=== PATIENT | female | born 1970 | race Caucasian/White ===

== ENCOUNTER 2017-03-06 01:34 | Emergency (ER) | payer MEDICAID ==
[~2017-03-06] VITALS: Ht 154.9 cm; Wt 74.2 kg
[~2017-03-06 01:34] MED LIST: AMOX500C2 PO; CIPR7.5D4 RIGHT EAR; IBUP-1542 PO
[2017-03-06 01:37] VITALS: Ht 154.9 cm; Wt 74.2 kg
[2017-03-06] MEDS ORDERED: ONDANSETRON 4 MG INJ IV STA ×2 (02:07→04:12)
[2017-03-06] MEDS ORDERED: SOD CHLORIDE 0.9% 1,000 ML IV STA (02:07)
[2017-03-06] MEDS ORDERED: morphine 4 MG/ML VIAL IV STA (02:07)
[2017-03-06 02:32] LABS: BASOPHIL # 0.1 10^3/ul (0.0-0.1); BASOPHILS % 0.4 % (0.0-2.0); EOSINOPHILS # 0.2 10^3/ul (0.0-0.5); EOSINOPHILS % 0.7 % (0.0-7.0); HEMATOCRIT 42.8 % (37.0-47.0); HEMOGLOBIN 15.2 g/dl (12.0-16.0); LYMPHOCYTES # 1.9 10^3/ul (0.8-2.9); LYMPHOCYTES % 9.1 % (15.0-51.0); MEAN CORPUSCULAR HGB CONC 35.5 g/dl (32.0-37.0); MEAN CORPUSCULAR VOLUME 87.2 fl (82.0-101.0); MEAN PLATELET VOLUME 11.7 fl (7.4-10.4); MONOCYTE # 1.4 10^3/ul (0.3-0.9); NEUTROPHIL # 16.7 10^3/ul (1.6-7.5); NEUTROPHILS % 82.4 % (39.0-77.0); PLATELET COUNT 221 10^3/UL (140-415); RED BLOOD COUNT 4.91 10^6/ul (4.20-5.40); WHITE BLOOD COUNT 20.3 10^3/ul (4.8-10.8)
[2017-03-06 02:44] LABS: ALBUMIN 4.6 g/dl (3.3-4.9); ALBUMIN/GLOBULIN RATIO 1.39; CREATININE 0.69 mg/dl (0.44-1.00); POTASSIUM 3.8 mmol/L (3.5-5.1); TOTAL PROTEIN 7.9 g/dl (6.1-8.1)
--- NOTE | 2017-03-06 03:37 | ERD ---
ER Documentation Chief Complaint Chief Complaint bib son for nausea vomiting and diarrhea x 7 pm, ate bad food at 1300 HPI This is a 46-year-old female comes in with complaints of nausea vomiting diarrhea since 7 PM. Patient says she ate bad food. No fevers no chills. No other current complaints. ROS All systems reviewed and are negative except as per history of present illness. Medications Home Meds Active Scripts Ibuprofen* (Ibuprofen*) 600 Mg Tablet, 600 MG PO Q6 for PAIN, #30 TAB Prov:LATASHA BENEDICT PA-C 01/05/15 Ciprofloxacin Hcl/Dexameth (Ciprodex Otic Suspension) 7.5 Ml Drops.susp, 4 DROP RIGHT EAR BID for 7 Days, DROP Prov:LATASHA BENEDICT PA-C 01/05/15 Amoxicillin* (Amoxicillin*) 500 Mg Cap, 500 MG PO BID for 10 Days, CAP Prov:LATASHA BENEDICT PA-C 01/05/15 Allergies Allergies: Coded Allergies: No Known Allergy (Unverified , 05/01/12) PMhx/Soc Medical and Surgical Hx: pt denies Medical Hx History of Surgery: No (Appendectomy, , tubaligation) Anesthesia Reaction: No Hx Neurological Disorder: No Hx Respiratory Disorders: No Hx Cardiac Disorders: No Hx Psychiatric Problems: No Hx Miscellaneous Medical Probl: No Hx Alcohol Use: No Hx Substance Use: No Hx Tobacco Use: No Smoking Status: Never smoker Physical Exam Vitals Vital Signs Date Time Temp Pulse Resp B/P Pulse Ox O2 Delivery O2 Flow Rate FiO2 03/06/17 01:52 98.6 106 18 114/53 100 Room Air 03/06/17 01:37 98.6 82 18 137/65 100 Physical Exam Const: [] Head: Atraumatic Eyes: Normal Conjunctiva ENT: Normal External Ears, Nose and Mouth. Neck: Full range of motion..~ No meningismus. Resp: Clear to auscultation bilaterally Cardio: Regular rate and rhythm, no murmurs Abd: Soft, non tender, non distended. Normal bowel sounds Skin: No petechiae or rashes Back: No midline or flank tenderness Ext: No cyanosis, or edema Neur: Awake and alert Psych: Normal Mood and Affect Result Diagram: 03/06/1721403/06/17214 Results 24 hrs Laboratory Tests Test 03/06/17 02:15 White Blood Count 20.310^3/ul Red Blood Count 4.9110^6/ul Hemoglobin 15.2g/dl Hematocrit 42.8% Mean Corpuscular Volume 87.2fl Mean Corpuscular Hemoglobin 31.0pg Mean Corpuscular Hemoglobin Concent 35.5g/dl Red Cell Distribution Width 12.0% Platelet Count 88213^3/UL Mean Platelet Volume 11.7fl Neutrophils % 82.4% Lymphocytes % 9.1% Monocytes % 7.0% Eosinophils % 0.7% Basophils % 0.4% Nucleated Red Blood Cells % 0.0/100WBC Neutrophils # 16.710^3/ul Lymphocytes # 1.910^3/ul Monocytes # 1.410^3/ul Eosinophils # 0.210^3/ul Basophils # 0.110^3/ul Nucleated Red Blood Cells # 0.010^3/ul Sodium Level 140mmol/L Potassium Level 3.8mmol/L Chloride Level 101mmol/L Carbon Dioxide Level 23mmol/L Anion Gap 20 Blood Urea Nitrogen 11mg/dl Creatinine 0.69mg/dl Glucose Level 114mg/dl Calcium Level 10.0mg/dl Total Bilirubin 1.0mg/dl Direct Bilirubin 0.00mg/dl Indirect Bilirubin 1.0mg/dl Aspartate Amino Transf (AST/SGOT) 25IU/L Alanine Aminotransferase (ALT/SGPT) 36IU/L Alkaline Phosphatase 75IU/L Total Protein 7.9g/dl Albumin 4.6g/dl Globulin 3.30g/dl Albumin/Globulin Ratio 1.39 Lipase 166U/L Current Medications Medications (Trade) Dose Ordered Sig/Silvio Route PRN Reason Start Time Stop Time Status Last Admin Dose Admin Sodium Chloride (NS) 1,000 ml @ 1,000 mls/hr Q1H STAT IV 03/06/17 02:07 03/06/17 03:06 DC 03/06/17 02:14 Morphine Sulfate (morphine) 4 mg ONCE STAT IV 03/06/17 02:07 03/06/17 02:08 DC 03/06/17 02:14 Ondansetron HCl (Zofran Inj) 4 mg ONCE STAT IV 03/06/17 02:07 03/06/17 02:08 DC 03/06/17 02:14 Procedures/MDM Medical decision-makin-year-old female who has what looks to be acute bacterial gastroenteritis. At this point is clinically stable. Patient is feeling much better. Patient does have a mild white count, was likely stress reaction. At this point is clinically stable she will be discharged home. Departure Diagnosis: Primary Impression: Nausea and vomiting Condition: Stable MERCED STANTON Mar 06, 2017 03:37
[2017-03-06] MEDS ORDERED: DICY10CA60 PO (03:39)
[2017-03-06] MEDS ORDERED: ONDA4TAB14 PO (03:39)
[2017-03-06 04:15] VITALS: BP 113/59; PULSE 113; RESP 16
[2017-03-06] MEDS ORDERED: IBUPROFEN 800 MG TAB PO ONE (04:30)
[2017-03-06 04:50] VITALS: TEMP 101.1
== END 2017-03-06 04:54 | disposition home or self-care (01) ==
LOC: E/R 01:34
DX: R11.2 Nausea with vomiting, unspecified (principal)
CPT/HCPCS: 36415; 80053; 83690; 85025; 96374; 96375; 96376; J2270; J2405; J7030; Z7502; Z7610

== ENCOUNTER 2018-02-19 23:27 | Emergency (ER) | END 2018-02-20 01:34 | disposition home or self-care (01) ==

== ENCOUNTER 2018-03-21 20:10 | Emergency (ER) | payer BC, MEDICAID ==
[~2018-03-21] VITALS: Ht 154.9 cm; Wt 64.6 kg
[~2018-03-21 20:10] MED LIST changes: +CIPR7.5D RIGHT EAR; -CIPR7.5D4 RIGHT EAR; +DICY10CA40 PO; +LORA1TAB PO; +ONDA4TAB14 PO; +ONDA4TAB8 PO; +PRED20TA PO
[2018-03-21 20:25] VITALS: Ht 154.9 cm; Wt 64.6 kg
[2018-03-21] MEDS ORDERED: LORAZEPAM 1 MG TAB PO ONE (23:30)
--- NOTE | 2018-03-22 01:07 | ERD ---
ER Documentation Chief Complaint Chief Complaint dizzy,shaking oftentimes,palpitations,slight LYLES x a month HPI This is a 48-year-old female who presents to the emergency room for evaluation of dizziness which she describes as lightheadedness, shaking, and anxiety. The patient states that she has had her symptoms for 1 month. She states that she saw Dr. kingsley [facility] who gave her some medications but it has not helped. The patient denies any chest pressure nausea or vomiting or diaphoresis at this time but does states that she gets intermittent palpitations ROS All systems reviewed and are negative except as per history of present illness. Medications Home Meds Active Scripts Prednisone* (Prednisone*) 20 Mg Tab, 40 MG PO DAILY for 4 Days, TAB Prov:JOBY BARNES MD 02/20/18 Ondansetron Hcl* (Zofran*) 4 Mg Tablet, 4 MG PO Q8H PRN for NAUSEA AND/OR VOMITING, #12 TAB Prov:JOBY BARNES MD 02/20/18 Lorazepam* (Lorazepam*) 1 Mg Tablet, 1 MG PO Q8H PRN for dizziness, #20 TAB Prov:JOBY BARNES MD 02/20/18 Ondansetron (Ondansetron Odt) 4 Mg Tab.rapdis, 4 MG PO Q6H PRN for NAUSEA AND/OR VOMITING, #10 TAB Prov:MERCED STANTON 03/06/17 Dicyclomine HCl (Dicyclomine HCl) 10 Mg Capsule, 10 MG PO QID, #14 CAP Prov:MERCED TSANTON 03/06/17 Ibuprofen* (Ibuprofen*) 600 Mg Tablet, 600 MG PO Q6 for PAIN, #30 TAB Prov:LATASHA BENEDICT PA-C 01/05/15 Ciprofloxacin Hcl/Dexameth (Ciprodex Otic Suspension) 7.5 Ml Drops.susp, 4 DROP RIGHT EAR BID for 7 Days, DROP Prov:LATASHA BENEDICT PA-C 01/05/15 Amoxicillin* (Amoxicillin*) 500 Mg Cap, 500 MG PO BID for 10 Days, CAP Prov:LATASHA BENEDICT PA-C 01/05/15 Allergies Allergies: Coded Allergies: No Known Allergy (Unverified , 05/01/12) PMhx/Soc History of Surgery: No (Appendectomy, , tubaligation) Anesthesia Reaction: No Hx Neurological Disorder: No Hx Respiratory Disorders: No Hx Cardiac Disorders: No Hx Psychiatric Problems: No Hx Miscellaneous Medical Probl: Yes (VERTIGO) Hx Alcohol Use: Yes Hx Substance Use: No Hx Tobacco Use: No Smoking Status: Never smoker Physical Exam Vitals Vital Signs Date Temp Pulse Resp B/P (MAP) Pulse Ox O2 O2 Flow FiO2 Time Delivery Rate 03/21/18 97.7 85 18 134/58 98 Room Air 23:18 (83) 03/21/18 97.7 80 18 155/74 98 20:25 (101) Physical Exam INITIAL VITAL SIGNS: Reviewed by me GENERAL: The patient is well developed and appropriate for usual state of health in no apparent distress HEENT: Pupils equal, round, and reactive to light. EOMI. There is no scleral icterus. NECK: C-spine is soft and supple, there is no meningismus. There is no cervical lymphadenopathy. LUNGS: Clear to auscultation bilaterally. There are no rales, wheezes or rhonchi. HEART: Regular rate and rhythm, no murmurs, clicks, rubs or gallops. ABDOMEN: Soft, non-tender, non-distended. There are bowel sounds in all four quadrants. No rebound or guarding. EXTREMITIES: There is no peripheral cyanosis or edema. No focal swelling or erythema. NEUROLOGICAL: The patient moves all four extremities with 5/5 strength. Cranial nerves II - XII are intact. Normal gait. Alert and oriented SKIN: There is no apparent rash or petechiae. HEME/LYMPHATIC: There is no evidence of excessive bruising or lymphedema. PSYCHIATRIC: The patient does appears to be anxious Result Diagram: 03/21/18235003/21/182349 Results 24 hrs Laboratory Tests Test 03/21/18 23:50 03/21/18 23:51 Sodium Level 139 mmol/L Potassium Level 3.8 mmol/L Chloride Level 101 mmol/L Carbon Dioxide Level 26 mmol/L Anion Gap 12 Blood Urea Nitrogen 11 mg/dl Creatinine 0.53 mg/dl Est Glomerular Filtrat Rate mL/min > 60 mL/min Glucose Level 105 mg/dl Calcium Level 9.9 mg/dl Troponin I < 0.012 ng/ml White Blood Count 11.0 10^3/ul Red Blood Count 4.52 10^6/ul Hemoglobin 14.0 g/dl Hematocrit 40.7 % Mean Corpuscular Volume 90.0 fl Mean Corpuscular Hemoglobin 31.0 pg Mean Corpuscular Hemoglobin Concent 34.4 g/dl Red Cell Distribution Width 12.4 % Platelet Count 315 10^3/UL Mean Platelet Volume 9.9 fl Immature Granulocytes % 0.500 % Neutrophils % 68.7 % Lymphocytes % 24.3 % Monocytes % 5.3 % Eosinophils % 0.7 % Basophils % 0.5 % Nucleated Red Blood Cells % 0.0 /100WBC Immature Granulocytes # 0.050 10^3/ul Neutrophils # 7.6 10^3/ul Lymphocytes # 2.7 10^3/ul Monocytes # 0.6 10^3/ul Eosinophils # 0.1 10^3/ul Basophils # 0.1 10^3/ul Nucleated Red Blood Cells # 0.0 10^3/ul Current Medications Medications Dose Sig/Silvio Start Time Status Last (Trade) Ordered Route PRN Stop Time Admin Dose Reason Admin Lorazepam 1 mg ONCE ONCE 03/21/18 DC 03/22/18 (Ativan) PO 23:30 03/21/18 00:39 23:31 Procedures/MDM EKG: Rate/Rhythm: [Normal Sinus Rhythm] QRS, ST, T-waves: [No changes consistent w/ acute ischemia] Impression: [No evidence of ischemia or arrhythmia] Chest X-ray 1V Interpreted by me: Soft Tissue: No acute abnormalities Bones: No acute abnormalities Mediastinum/Cardiac Silhouette/Lungs: [No acute abnormalities] This 48-year-old female presents to the emergency room for evaluation of multiple complaints including dizziness and lightheadedness and heart palpitations. She was afebrile and nontoxic-appearing on my exam. Her EKG is nonischemic, troponin is normal, chest x-ray is clear. The patient was given Ativan p.o. and on my reevaluation states she is feeling much better. She is likely suffering from anxiety and will be discharged at this time with advised to follow-up with her PCP for outpatient anxiety lytic medications. The patient was given strict return precautions and does feel comfortable with the plan of care. Differential diagnoses entertained was broad with potential high acuity. Patient has been evaluated for acute myocardial infarction, unstable angina, aortic dissection, pulmonary embolism, other intrathoracic and cardiac concerns. Ultimately the patient's evaluation is nondiagnostic. Based on the patient's lack of risk factors, as well as the patient's clinical, laboratory, and imaging data, the patient appears to be low risk for these high risk causes of chest pa in. Departure Diagnosis: Primary Impression: Dizziness Additional Impression: Anxiety Condition: Stable NICOLE LAGUNAS DO Mar 22, 2018 01:07
[2018-03-22] MEDS ORDERED: BISO5TAB21 PO (02:00)
[2018-03-22 02:20] VITALS: BP 134/58; PULSE 81; RESP 18
== END 2018-03-22 02:21 | disposition home or self-care (01) ==
LOC: E/R 20:10
DX: R42 Dizziness and giddiness (principal); F41.9 Anxiety disorder, unspecified; R40.2252 Coma scale, best verbal response, oriented, at arrival to emergency department; R40.2362 Coma scale, best motor response, obeys commands, at arrival to emergency department; R40.2142 Coma scale, eyes open, spontaneous, at arrival to emergency department
CPT/HCPCS: 71045; 80048; 84484; 85025; 93005